=== PATIENT | female | born 1980 | race Caucasian/White ===

== ENCOUNTER 2017-12-17 06:47 | Inpatient (IN) | payer OTHER ==
[2017-12-17] MEDS ORDERED: AMPICILLIN - 2 GM in SODIUM CHLORIDE 100 ML IVPB ONE (07:00)
[2017-12-17] MEDS ORDERED: DEXTROSE 5%-LACTATED RINGERS 1,000 ML IV SCH ×2 (07:05→10:45)
[2017-12-17] MEDS ORDERED: AMPICILLIN SODIUM 2 GM VIAL ONE (07:27)
[2017-12-17 08:34] VITALS: BMI 30.5
[2017-12-17] MEDS ORDERED: OXYTOCIN 30 UNITS in 0.9% NS 30 UNIT/500 ML INFUS.BAG IVPB ONE (08:48)
[2017-12-17] MEDS ORDERED: TUBERCULIN PPD 5 TU/0.1ML SYRINGE (IN PATIENT USE ONLY) ID ONE (10:00)
[2017-12-17] MEDS ORDERED: OXYTOCIN 30 UNITS in 0.9% NS 30 UNIT/500 ML INFUS.BAG IVPB SCH ×2 (10:45→13:15)
[2017-12-17] MEDS: AMPICILLIN - 1 GM in SODIUM CHLORIDE 100 ML IVPB SCH ×2 (11:00→15:00)
--- NOTE | 2017-12-17 12:05 | HP ---
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 History of Present Illness: PROM at 5:50am Vag GBS (+) Zika virus infx 2016 (not with ) Previous cervical LEEP Prior delivery at 36wks with spont clavicular fracture; pt denies shoulder dystocia at delivery History Source: Patient, Medical Record Limitations to Obtaining History: No Limitations - Past Medical History MATERIAL LIAISON: No: Alzheimer's, CVA, Dementia, Migraine, Multiple Sclerosis, Peripheral Neuropathy, Parkinson's, Seizure, Syncope, TIA, Vertigo, Other Cardiovascular: No: AFIB, Aneurysm, Aortic Insufficiency, Aortic Stenosis, CAD, CHF, Deep Vein Thrombosis, HTN, Hyperlipdemia, NE, Mitral Insufficiency, Mitral Stenosis, Murmur, Pulmonary Hypertension, Other Pulmonary: No: Asthma, Bronchitis, Cancer, COPD, O2 Dependent, Pneumonia, Previously Intubated, Pulmonary Embolus, Pulmonary Fibrosis, Sleep Apnea, Other Gastrointestinal: No: Ascites, Cancer, Constipation, Crohn's Disease, Diverticulitis, Diverticulosis, Esophageal Varices, Gastritis, GERD, GI Bleed, Hemorrhoids, Hiatal Hernia, Inflamatory Bowel Disease, Irritable Bowel Disease, Pancreatitis, Peptic Ulcer Disease, Ulcerative Colitis, Other Hepatobiliary: No: Cirrhosis, Cholelithiasis, Cholecystitis, Choledocholithiasis , Hepatitis A, Hepatitis B, Hepatitis C, Other Renal/: No: Renal Failure, Renal Inusuff, BPH, Cancer, Hematuria, Hemodialysis , Neurogenic Bladder, Renal Calculi, UTI, Other Reproductive: No: Ectopic , Endometriosis, Fibroids, PID, Polycystic Ovary Syndrome, Postmenopausal, Other ...: 4 ...Para: 1 ...Term: 0 ...: 1 ...Spon : 1 ...Induced : 1 ...LMP: 03/28/17 ... Weeks Gestation by Dates: 38.4 ...EDC by Dates: 01/02/18 ...EDC by Sono: 12/29/17 Heme/Onc: Yes: Anemia Infectious Disease: No: AIDS, C-Diff, Herpes Zoster, HIV, MRSA, STD's, Tuberculosis, VREF, Other Psych: No: Addictions, Anxiety, Bipolar, Depression, Panic, Psychosis, Schizophrenia, Other Musculoskeletal: No: Bursitis, Chronic low back pain, Hemiparesis, Hemiplegia, Osteoarthritis, Paraplegia, Other Rheumatology: No: Fibromyalgia, Gout, Lupus, Rheumatoid Arthritis, Sarcoidosis, Vasculitis, Other ENT: No: Allergic Rhinitis, Sinusitis, Other Endocrine: No: Wirt's Disease, Ronald's Disease, Diabetes Insipidus, Diabetes Mellitus, Hyperparathyroidism, Hyperthyroidism, Hypothyroidism, Osteopenia, SIADH, Other Dermatology: No: Basal Cell, Cellulitis, Eczema, Melanoma, Psoriasis, Squamous Cell, Other - Past Surgical History Hx Myomectomy: No Hx Transabdominal Cerclage: No Additional Surgical History: LEEP, D&C - Smoking History Smoking history: Former smoker Have you smoked in the past 12 months: No If you are a former smoker, when did you quit?: 2008 - Alcohol/Substance Use Hx Alcohol Use: No History of Substance Use: reports: None - Social History Usual Living Arrangement: Yes: With Spouse, With Child ADL: Independent History of Recent Travel: No Home Medications - Allergies Allergies/Adverse Reactions: Allergies Allergy/AdvReac Type Severity Reaction Status Date / Time No Known Drug Allergies Allergy Verified 08/16/17 14:18 - Home Medications Home Medications: Ambulatory Orders Vit Calc,Iron,Folic [ Vitamins] 1 each PO DAILY 08/16/17 Family Disease History - Family Disease History Family History: Denies Review of Systems - Review of Systems Constitutional: reports: No Symptoms HENT: reports: No Symptoms Neck: reports: No Symptoms Cardiovascular: reports: No Symptoms Respiratory: reports: No Symptoms Gastrointestinal: reports: No Symptoms Genitourinary: reports: No Symptoms, Other (leaking clear fluids) Breasts: reports: No Symptoms Reported Musculoskeletal: reports: No Symptoms Integumentary: reports: No Symptoms Neurological: reports: No Symptoms Endocrine: reports: No Symptoms Hematology/Lymphatic: reports: No Symptoms Psychiatric: reports: No Symptoms Pain Intensity: 1 Physical Exam - Maternity Vital Signs: Vital Signs Temperature 97.6 F 12/17/17 10:00 Pulse Rate 20 L 12/17/17 11:00 Respiratory Rate 74 H 12/17/17 11:00 Blood Pressure 126/80 12/17/17 11:00 O2 Sat by Pulse Oximetry (%) Constitutional: Yes: Well Nourished, No Distress, Calm Eyes: Yes: WNL, Conjunctiva Clear HENT: Yes: WNL, Atraumatic, Normocephalic Neck: Yes: WNL, Supple, Trachea Midline Cardiovascular: Yes: WNL, Regular Rate and Rhythm Lungs: Clear to auscultation, Normal air movement - Abdominal Exam/OB Fundal Height: 38 Number of Fetuses: Single Presentation: Vertex Contractions: Yes Regularity: Irritability Intensity: Unaware Monitor Mode: External Heart Rate (range): 140 Heart Rate Location: Midline Category: I Accelerations: Uniform Decelerations: None - Vaginal Exam/OB Speculum Exam: Yes Dilatation (cm): 0 Effacement (%): 50 Amniotic Membrane Status: Leaking Nitrazine Test: Positive Amniotic Fluid: Yes: Clear Presentation: Vertex/Position Station: -4 - Physical Exam Musculoskeletal: Yes: WNL Extremities: Yes: WNL Edema: No Integumentary: Yes: WNL Deep Tendon Reflex Grade: Normal +2 ...Motor Strength: WNL Psychiatric: Yes: WNL, Alert, Oriented Hemorrhage Risk Assessment - Risk Factors Medium Risk Factors: Yes: None High Risk Factors: Yes: None Risk Score: 1 Risk Level: Medium Risk Imaging - Results Ultrasound: Report Reviewed Assessment/Plan 36yo P1 with at EGA 38w4d admitted with PROM for induction of labor. Pt is not in labor. Fetus with Category I tracing. Adequate gynecoid pelvimetry on exam. We had long discussion re: risks, benefits, and alternatives of labor induction. I explained the options of expectant management awaiting spontaneous labor, induction of labor, and elective section. The risks of uterine tachysystole, distress, uterine rupture, need for emergency C/S, hemorrhage, infection, scarring, etc. were discussed. We also discussed the risks of meconium aspiration, shoulder dystocia, and anesthesia options. She declined C/S. The pt requested to proceed with induction. We discussed the alternative methods of induction with Cervidil, Cytotec, and pitocin. The pt prefers pitocin.
[2017-12-17] MEDS ORDERED: PROMETHAZINE HCL 25 MG/1 ML VIAL ONE (13:19)
[2017-12-17] MEDS ORDERED: BUTORPHANOL TARTRATE 1 MG/ML VIAL ONE ×2 (13:19)
[2017-12-17] MEDS ORDERED: PROMETHAZINE HCL 25 MG/1 ML VIAL IVPB ONE (13:20)
[2017-12-17] MEDS ORDERED: BUTORPHANOL TARTRATE 1 MG/ML VIAL IVPB ONE (13:20)
[2017-12-17 13:21] LABS: BASO % 0.2 % (0-2.0); HEMATOCRIT 32.9 % (32.4-45.2); HEMOGLOBIN 11.3 GM/dL (10.7-15.3); LYMPH % 13.7 % (8-40); MCH 30.9 pg (25.7-33.7); MCHC 34.3 g/dl (32.0-36.0); MEAN CELL VOLUME 90.3 fl (80-96); MEAN PLT VOLUME 10.6 fl (7.5-11.1); NEUT % 80.1 % (42.8-82.8); PLATELET COUNT 167 K/MM3 (134-434); RBC 3.64 M/mm3 (3.60-5.2); RDW 13.8 % (11.6-15.6); WHITE BLOOD COUNT 11.5 K/mm3 (4.0-10.0)
[2017-12-17 13:38] LABS: INR 1.06 (0.83-1.09)
[2017-12-17 13:41] LABS: ACTIVATED PTT 24.4 SECONDS (25.2-36.5)
[2017-12-17 13:42] LABS: ANION GAP 10 (8-16); BLOOD UREA NITROGEN 7 mg/dL (7-18); CALCIUM 8.5 mg/dL (8.5-10.1); CHLORIDE 106 mmol/L (98-107); CO2 22 mmol/L (21-32); CREATININE 0.5 mg/dL (0.55-1.02); GLUCOSE,RANDOM 86 mg/dL (74-106); POTASSIUM 3.9 mmol/L (3.5-5.1); SODIUM 138 mmol/L (136-145)
[2017-12-17] MEDS ORDERED: FENTANYL/BUPIVACAINE/NS/PF - PCEA - 50 ML DISP.SYRIN EP ONE (16:36)
[2017-12-17] MEDS ORDERED: ELECTROLYTE-148 SOLN 1,000 ML IV SCH (16:45)
[2017-12-17] MEDS ORDERED: OXYTOCIN 20 UNITS in 0.9% NS 20 UNIT/1,000 ML INFUS.BAG IV ONE (17:03)
[2017-12-17] MEDS ORDERED: LIDOCAINE HCL 1% PRESERVATIVE FREE - 30ML VIAL ONE (17:04)
[2017-12-17] MEDS ORDERED: IBUPROFEN 600 MG TABLET (FP) PO ONE ×2 (17:35→18:45)
[2017-12-17] MEDS ORDERED: ACETAMINOPHEN 325 MG TABLET (FP) ONE (17:35)
[2017-12-17] MEDS ORDERED: OXYTOCIN 20 UNITS in 0.9% NS 20 UNIT/1,000 ML INFUS.BAG IV SCH ×2 (18:15→21:00)
[2017-12-17] MEDS ORDERED: ACETAMINOPHEN 325 MG TABLET (FP) PO ONE (18:45)
[2017-12-17] MEDS ORDERED: BENZOCAINE 20% 57 GM BOTTLE TP PRN (20:17)
[2017-12-17] MEDS ORDERED: METHYLERGONOVINE MALEATE 0.2 MG/1 ML AMP IM PRN (20:17)
[2017-12-17] MEDS ORDERED: BENZOCAINE 28 GM HEMORRHOIDAL OINTMENT TP PRN (20:17)
[2017-12-17] MEDS ORDERED: BISACODYL 10 MG SUPP.RECT RC PRN (20:17)
[2017-12-17] MEDS ORDERED: WITCH HAZEL 50% (TUCKS) 40 PAD/JAR PAD TP PRN (20:17)
--- NOTE | 2017-12-17 20:21 | PN ---
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
[2017-12-18] MEDS: IBUPROFEN 600 MG TABLET (FP) PO PRN ×2 (00:25→22:22)
[2017-12-18] MEDS: ACETAMINOPHEN 325 MG TABLET (FP) PO PRN ×2 (00:26→22:23)
[2017-12-18 08:27] LABS: BASO % 0.8 % (0-2.0); EOS % 0.9 % (0-4.5); HEMATOCRIT 31.3 % (32.4-45.2); HEMOGLOBIN 10.7 GM/dL (10.7-15.3); MCH 31.4 pg (25.7-33.7); MCHC 34.2 g/dl (32.0-36.0); MEAN CELL VOLUME 91.9 fl (80-96); MEAN PLT VOLUME 9.9 fl (7.5-11.1); MONO % 5.5 % (3.8-10.2); NEUT % 79.8 % (42.8-82.8); PLATELET COUNT 144 K/MM3 (134-434); RDW 13.9 % (11.6-15.6); WHITE BLOOD COUNT 14.2 K/mm3 (4.0-10.0)
[2017-12-18] MEDS: PRENATAL VITAMINS W/ FOLIC ACID TABLET (FP) PO SCH (09:40)
--- NOTE | 2017-12-18 09:52 | PN ---
Post Progress Note - Subjective Subjective: No complaints Post Day: 1 Type of Delivery: Vital Signs: Vital Signs Temperature 98.2 F 12/18/17 06:00 Pulse Rate 77 12/18/17 06:00 Respiratory Rate 18 12/18/17 06:00 Blood Pressure 113/52 12/18/17 06:00 O2 Sat by Pulse Oximetry (%) Breast Exam: Yes: Soft Abdomen/GI: Yes: Abdomen soft Lochia: Yes: Rubra Lochia, amount: Small Extremities: Yes: Calves non-tender Perineum: Yes: Episiotomy (repair intact) Activity: Ambulating - Labs Labs: CBC WBC 14.2 K/mm3 (4.0-10.0) H 12/18/17 07:58 RBC 3.40 M/mm3 (3.60-5.2) L 12/18/17 07:58 Hgb 10.7 GM/dL (10.7-15.3) 12/18/17 07:58 Hct 31.3 % (32.4-45.2) L 12/18/17 07:58 MCV 91.9 fl (80-96) 12/18/17 07:58 MCH 31.4 pg (25.7-33.7) 12/18/17 07:58 MCHC 34.2 g/dl (32.0-36.0) 12/18/17 07:58 RDW 13.9 % (11.6-15.6) 12/18/17 07:58 Plt Count 144 K/MM3 (134-434) 12/18/17 07:58 MPV 9.9 fl (7.5-11.1) 12/18/17 07:58 Absolute Neuts (auto) 11.3 # 12/18/17 07:58 Neutrophils % 79.8 % (42.8-82.8) 12/18/17 07:58 Lymphocytes % 13.0 % (8-40) 12/18/17 07:58 Monocytes % 5.5 % (3.8-10.2) 12/18/17 07:58 Eosinophils % 0.9 % (0-4.5) 12/18/17 07:58 Basophils % 0.8 % (0-2.0) D 12/18/17 07:58 Nucleated RBC % 0 % (0-0) 12/18/17 07:58 Assessment/Plan 36yo P2 s/p , doing well stable, afebrile. Asymptomatic for anemia care instructions reviewed. Continue routine care. Ambulation encouraged Discharge instruction reviewed
--- NOTE | 2017-12-18 09:55 | DS ---
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 Signs: Vital Signs Temperature 98.2 F 12/18/17 06:00 Pulse Rate 77 12/18/17 06:00 Respiratory Rate 18 12/18/17 06:00 Blood Pressure 113/52 12/18/17 06:00 O2 Sat by Pulse Oximetry (%) Constitutional: Yes: Well Nourished, No Distress, Calm Eyes: Yes: WNL, Conjunctiva Clear HENT: Yes: WNL, Atraumatic, Normocephalic Neck: Yes: WNL, Supple, Trachea Midline Cardiovascular: Yes: WNL, Regular Rate and Rhythm Respiratory: Yes: WNL, Regular, CTA Bilaterally Gastrointestinal: Yes: WNL, Normal Bowel Sounds, Soft ...Rectal Exam: Yes: Deferred Renal/: Yes: WNL Adnexa: Normal: Left, Right ....Post : Yes: Uterus firm, Uterus non-tender, Slight lochia rubra Musculoskeletal: Yes: WNL Extremities: Yes: WNL Edema: No Integumentary: Yes: WNL Neurological: Yes: WNL, Alert, Oriented ...Motor Strength: WNL Psychiatric: Yes: WNL, Alert, Oriented Labs: CBC, BMP 12/18/17 07:58 12/17/17 12:56 Delivery - Delivery Vaginal Delivery: No Problems, Spontaneous Type of Anesthesia: Local Episiotomy/Laceration: Vaginal Extension/lac, 2nd degree EBL (cc): 300 Delivery, Single - Stages of Labor Date 1st Stage Initiatied: 12/17/17 Time 1st Stage Initiated: 07:00 Date 2nd Stage Initiated: 12/17/17 Time 2nd Stage Initiated: 17:00 Date of Delivery: 12/17/17 Time of Delivery: 17:19 Time Placenta Delivered: 17:30 Placenta: Yes: Spontaneous, Normal Configuration - 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 You may walk unlimited radha of and climb stairs. You may resume driving the car when you feel safe and comfortable behind the wheel. No sexual activity as instructed. Wound care If you have a bandage, leave it on, and keep dry for 48-72 hours. After that time discard the outer bandage. If they are tapes on the skin under the out of bandage leave them in place. They will peel off in the next 7 to 10 days. Do Not Peel them off. You may shower the day after surgery. If there are tapes present on the skin, you may shower over them. Diet There are no dietary restrictions. Eat healthy, high-fiber foods. Drink 6 to 8 glasses of liquid each day. This will assist in keeping your bowels are regular. Pain management You may take Tylenol or acetaminophen or Ibuprofen (for example, Motrin, Advil etc.) from my pain prescription medication is ordered should be taken as prescribed for moderate to severe pain. Call MD for any of the following: Severe pain not relieved by medication Fever of 101 or higher Excessive bleeding or drainage on dressing Inability to urinate Referrals: Butch Thrasher MD [Staff Physician] - Disposition: HOME - Home Medications Comprehensive Discharge Medication List: Ambulatory Orders Vit Calc,Iron,Folic [ Vitamins] 1 each PO DAILY 08/16/17
[2017-12-18] MEDS ORDERED: DIPHTH,PERTUSS(ACELL),TET 0.5 ML DISP.SYRIN IM ONE (10:00)
--- NOTE | 2017-12-18 21:27 | CIRC ---
Circumcision Note Pediatric Clearance: Yes Informed Consent: Yes Instruments: 1.3 Gumco Local Anesthesia: Lidocaine 1% 1cc subcutaneously: Yes Complications: None Intervention: None Estimated Blood Loss (mLs): 1 Specimens Removed: Foreskin Post-procedure diagnosis: Post Circumcision
[2017-12-18] MEDS ORDERED: SENNOSIDES/DOCUSATE COMBO (SENNA PLUS) TABLET (UD) PO PRN (22:00)
[2017-12-19 08:41] VITALS: BP 114/67; PULSE 66; TEMP 97.8
[2017-12-19] MEDS: PRENATAL VITAMINS W/ FOLIC ACID TABLET (FP) PO SCH (10:01)
== END 2017-12-19 12:25 | disposition home or self-care (01) | DRG 560 ==
LOC: JDEL 06:47 → JLDR 07:00 → J3W 19:57
PROVIDERS: ADMIT Obstetrics & Gynecology; ATTEND Obstetrics & Gynecology
PROC: 10E0XZZ Delivery of Products of Conception, External Approach (ICD-10-PCS; principal; 2017-12-17)
PROC: 0KQM0ZZ Repair Perineum Muscle, Open Approach (ICD-10-PCS; 2017-12-17)
DX: O99.02 Anemia complicating childbirth (principal); D64.9 Anemia, unspecified; O70.1 Second degree perineal laceration during delivery; Z3A.38 38 weeks gestation of pregnancy; Z37.0 Single live birth
CPT/HCPCS: 36415; 59409; 80048; 85025; 85610; 85730; 86593; 86850; 86900; 86901; 90715